=== PATIENT | female | born 1965 | race Caucasian/White ===

== ENCOUNTER 2025-03-02 13:05 | Outpatient (AMB) | payer BC, SELFPAY ==
--- NOTE | 2025-03-02 13:08 | AM.OFFWIN_ITS ---
Intake Vital Signs 03/02/25 13:13 Height 5 ft 2 in Weight 126 lb BMI 23.0 BP 112/69 Blood Pressure Location Lt brachial Position Sitting Pulse 65 Pulse Source Pulse Oximeter Temp 98.3 F Temp Source Oral Pulse Oximetry (%) 98 Oxygen Delivery Method Room Air Intake Visit Reasons: [employer]OCIATE- Stomach Pain & Rash Intake Note: [employer]IATE complains of discomfort of stomach felt in the left upper quadrant of the stomach for a month as well as some random rash over different area of the boday started around Dec 2024. Allergies oxycodone Allergy (Intermediate, Verified 03/02/25 13:23) Nausea Penicillins Adverse Reaction (Mild, Verified 03/02/25 13:23) Rapid heart rate Do you need a note to return to daycare/school/sports/work: No HPI HPI Comments History of Present Illness Details History of Present Illness The patient is a 59 year old female presenting with abdominal pressure and a skin rash. - The patient reports intermittent abdom inal pressure in the epigastric region, not pain, that started a couple of weeks before Thanksgi. - Patient reports that she was seen at a different urgent care a few weeks prior to [facility] and was recommended to have an abdominal ultrasound to rule out a hernia. - Patient reports that the ultrasound di d not show a hernia, however she was told that an ultrasound may not always bulk picker hernias - She believes the sensation may be stre ss-related and notes increased burping. - Associated symptoms denied include hea rtburn, acid reflux, nausea, vomiting, fevers, chills, or changes in bowel habits such as diarrhea, constipation, or blood in the stool. - The pressure is not exacerbated by lyi ng down or eating. - The patient has a past surgical histor y of an appendectomy and a tubal ligation. - She describes a sensation of something popping out in her abdomen since having children, though nothing is visually apparent. Rash: - The patient reports a rash characteriz ed by dry, scaly, and peeling skin affecting her face, scalp, and pubic area, which is sometimes itchy, especially at night. - The onset of the skin issues was aroun d December, which may coincide with a tick bite and a course of prednisone for an ear issue. - The tick bite did not result in red ra sh or a bull's eye rash. - Previous self-treatments include obregon ing detergents, applying hydrocortisone cream, Monistat, vitamin E, and castor oil, with limited success. - She reports the hydrocortisone cream h elped a little while applying it. Review of Systems - Constitutional: Denies fever and chill s. - Gastrointestinal: Reports intermittent abdominal pressure, Denies pain, acid reflux, nausea, vomiting, diarrhea, constipation, hematochezia, and melena. - Integumentary: Reports pruritic, dry, scaly skin on the face, scalp, stomach, and pubic area. - Integumentary: Denies a bull's eye dony h following a recent tick bite. Physical Exam General Appearance: Normal appearance, well developed. No acute distress Head: Normocephalic, atraumatic Pulmonary: No respiratory distress. Speaking in full sentences Abdominal: Normal bowel sounds. Abdomen is soft and nontender to palpation. Upon going from a lying to sitting position, patient noted to have visible bulging along the mid upper abdomen Musculoskeletal: Moving all extremities spontaneously and against gravity Skin: Dry scaly skin noted along the left upper abdomen and right nasolabial fold. No erythema or discharge noted Mental Status: Alert and Oriented x 3 Psychiatric: Normal mood. Normal affect. Physical Exam Vital Signs: Last Vital Signs Temp 98.3 F 03/02/25 13:13 Pulse 65 03/02/25 13:13 BP 112/69 03/02/25 13:13 Pulse Ox 98 03/02/25 13:13 Oxygen Delivery Method Room Air 03/02/25 13:13 BMI result Body Mass Index 23.0 Assessment & Plan Assessment & Plan (1) Abdominal pressure: Code(s): R10.9 - Unspecified abdominal pain Plan: - The patient's sensation of pressure and the visible midline bulge upon muscle contraction are suggestive of diastasis recti or ventral hernia. A previous abdominal ultrasound was unremarkable according to the patient. - The associated symptom of excessive burping may be related to GERD, potentially exacerbated by stress, however patient denies any other acid reflux symptoms or pain. - Follow up with a primary care provider was advised to consider further imaging and evaluation. - The patient was educated on the warning signs of an incarcerated hernia (severe pain, vomiting, fever, blood in stool) and advised to seek emergency care if these develop. (2) Rash: Code(s): R21 - Rash and other nonspecific skin eruption Plan: - The patient presents with dry, scaly, pruritic skin in multiple locations, including the face, scalp, and pubic area - Based on characteristics of rash, symptoms appear most consistent with atopic dermatitis - While there is a history of a tick bite, the rash is not characteristic of erythema migrans. - A prescription for triamcinolone (Kenalog) topical steroid was sent to her pharmacy for use twice daily on affected areas from the neck down. For the face, she was advised to use a thick ointment such as Aquaphor, especially after showering. Plan Patient was informed and verbally consented to the use of an ambient scribe for clinic note documentation during the visit. Medications: New triamcinolone acetonide 0.1% 1 appl topical BID 80 grams 0RF Coding Level of Care Code New Pt Level 3 (83160) Diagnoses Abdominal pressure R10.9 Rash R21
[2025-03-02 13:13] VITALS: BP 112/69; PULSE 65; TEMP 36.8; O2SAT 98; BMI 23.0
== END 2025-03-02 14:02 | disposition home or self-care (01) ==
PROVIDERS: PCP Physician Assistant; Visit Provider Family Medicine
DX: R10.9 Unspecified abdominal pain (principal); R21 Rash and other nonspecific skin eruption